=== PATIENT | male | born 1975 | race Caucasian/White ===

== ENCOUNTER 2018-09-21 08:43 | Emergency (ER) | payer BC, OTHER ==
[2018-09-21] MEDS ORDERED: Ibuprofen 800 MG TAB ONE (10:00)
--- NOTE | 2018-09-21 10:53 | CT ---
CT CERVICAL SPINE NONCONTRAST: Date: 09/21/18 Time: 0931 hours HISTORY: 43-year-old male status post acute cervical trauma. FINDINGS: There are no jumped or perched facets. There is no evidence of acute fracture. The vertebral body h eights are maintained. There is no prevertebral soft tissue swelling. There is a 0.5 cm round osteolytic lesion in the right side of the C5 vertebral body. There are no hi gh grade degenerative disc changes or high grade degenerative facet changes. IMPRESSION: 1. No evidence of acute fracture or acute traumatic subluxation. 2. Nonspecific solitary 5 mm osteolytic lesion in the right side of the C5 vertebral body, of unknow n etiology and significance. Consider nuclear medicine whole body bone scan to search for other skele alisa lesions to explore the small possibility of skeletal metastasis. noreen bonds POS: [facility]
== END 2018-09-21 10:13 | disposition home or self-care (01) ==
LOC: ERS 08:43
DX: S09.90XA Unspecified injury of head, initial encounter (principal); S16.1XXA Strain of muscle, fascia and tendon at neck level, initial encounter; E11.9 Type 2 diabetes mellitus without complications; E78.5 Hyperlipidemia, unspecified; I10 Essential (primary) hypertension; F17.210 Nicotine dependence, cigarettes, uncomplicated; Z79.84 Long term (current) use of oral hypoglycemic drugs; Z79.899 Other long term (current) drug therapy; W22.8XXA Striking against or struck by other objects, initial encounter
CPT/HCPCS: 72125

== ENCOUNTER 2018-09-23 12:38 | Emergency (ER) | payer BC, OTHER ==
[2018-09-23] MEDS ORDERED: HYDROmorphone 0.5 MG/0.5 ML SYRINGE ONE (14:10)
[2018-09-23] MEDS ORDERED: Diazepam 5 MG TAB ONE (14:11)
--- NOTE | 2018-09-23 15:45 | RAD ---
THORACIC SPINE 3 VIEWS: HISTORY: Pain. COMPARISON: None. FINDINGS: Thoracic spine vertebral body height is maintained. No fracture. Mild loss of disk space height and osteophyte formation involving the mid to distal thoracic spine. IMPRESSION: Degenerative change of the thoracic spine as above. POS: [facility]
== END 2018-09-23 15:45 | disposition home or self-care (01) ==
LOC: ERS 12:38
DX: S16.1XXA Strain of muscle, fascia and tendon at neck level, initial encounter (principal); S29.012A Strain of muscle and tendon of back wall of thorax, initial encounter; E11.9 Type 2 diabetes mellitus without complications; E78.5 Hyperlipidemia, unspecified; I10 Essential (primary) hypertension; F17.210 Nicotine dependence, cigarettes, uncomplicated; Z79.84 Long term (current) use of oral hypoglycemic drugs; Z79.899 Other long term (current) drug therapy; W22.8XXA Striking against or struck by other objects, initial encounter
CPT/HCPCS: 72072; 96372; J1170

== ENCOUNTER 2020-04-14 06:43 | Outpatient (CLI) | payer OTHER ==
[2020-04-14 16:10] LABS: Hemoglobin 17.7 g/dL (14.0-18.0); Mean Corpuscular HGB CONC 33.6 g/dL (32.0-36.0); Mean Corpuscular Hemoglobin 30.2 pg (27.0-31.0); Mean Corpuscular Volume 90.1 fL (78.0-98.0); Platelet Count 239 thou/uL (130-400); RBC Distribution Width 12.2 % (11.5-14.5); Red Blood Cell (RBC) Count 5.85 mill/uL (4.70-6.10); White Blood Cell (WBC) Count 8.7 thou/uL (4.8-10.8)
[2020-04-14 16:21] LABS: Anion Gap 17 mmol/L (10-20); BUN (Urea Nitrogen) 17 mg/dL (8.9-20.6); Calc. Creatinine Clearance 0 mL/min (70-130); Calcium 10.1 mg/dL (7.8-10.44); Carbon Dioxide 23 mmol/L (22-29); Chloride 100 mmol/L (98-107); Estimated GFR-MDRD 65; Glucose 197 mg/dL (70-105); Sodium 133 mmol/L (136-145)
[2020-04-14 16:28] LABS: Potassium 6.9 mmol/L (3.5-5.1)
== END 2020-04-14 06:44 | disposition home or self-care (01) ==
LOC: LABBT 06:43
PROVIDERS: ATTEND Neurological Surgery
DX: Z01.818 Encounter for other preprocedural examination (principal); Z11.59 Encounter for screening for other viral diseases; M51.24 Other intervertebral disc displacement, thoracic region
CPT/HCPCS: 80048; 85027; 87635; U0003

== ENCOUNTER 2020-04-14 17:50 | Emergency (ER) | payer BC ==
[2020-04-14 18:48] LABS: ALT (SGPT) 17 U/L (8-55); AST (SGOT) 12 U/L (5-34); Albumin 4.6 g/dL (3.5-5.0); Alkaline Phosphatase 64 U/L (40-110); Anion Gap 15 mmol/L (10-20); BUN (Urea Nitrogen) 19 mg/dL (8.9-20.6); Bilirubin, Total 0.3 mg/dL (0.2-1.2); Calc. Creatinine Clearance 0 mL/min (70-130); Calcium 9.8 mg/dL (7.8-10.44); Carbon Dioxide 20 mmol/L (22-29); Chloride 104 mmol/L (98-107); Estimated GFR-MDRD 56; Globulin 3.2 g/dL (2.4-3.5); Glucose 213 mg/dL (70-105); Potassium 5.3 mmol/L (3.5-5.1); Protein, Total 7.8 g/dL (6.0-8.3); Sodium 134 mmol/L (136-145)
== END 2020-04-14 19:40 | disposition home or self-care (01) ==
LOC: ERS 17:50
DX: E87.5 Hyperkalemia (principal); E11.9 Type 2 diabetes mellitus without complications; E78.5 Hyperlipidemia, unspecified; I10 Essential (primary) hypertension; F17.210 Nicotine dependence, cigarettes, uncomplicated; Z79.84 Long term (current) use of oral hypoglycemic drugs
CPT/HCPCS: 36415; 80053; 93005

== ENCOUNTER 2020-04-19 06:58 | Observation (INO) | payer OTHER ==
[2020-04-13 11:46] VITALS: BMI 32.3
[2020-04-19 08:29] LABS: Anion Gap 13 mmol/L (10-20); BUN (Urea Nitrogen) 17 mg/dL (8.9-20.6); Calc. Creatinine Clearance 158 mL/min (70-130); Calcium 9.6 mg/dL (7.8-10.44); Carbon Dioxide 24 mmol/L (22-29); Chloride 102 mmol/L (98-107); Estimated GFR-MDRD Greater than 90; Glucose 241 mg/dL (70-105); Potassium 5.1 mmol/L (3.5-5.1); Sodium 134 mmol/L (136-145)
[2020-04-19] MEDS ORDERED: Fentanyl 100 MCG/2 ML VIAL ONE ×5 (09:57→13:58)
[2020-04-19] MEDS ORDERED: Lidocaine 1% PF 5 ML VIAL ONE (10:45)
[2020-04-19] MEDS ORDERED: Ondansetron PF 4 MG/2 ML Vial ONE (10:45)
[2020-04-19] MEDS ORDERED: Dexamethasone 20 MG/5 ML VIAL ONE (10:45)
[2020-04-19] MEDS ORDERED: Ketorolac Tromethamine 30 MG/ML VIAL ONE (10:45)
[2020-04-19] MEDS ORDERED: PROPOFOL 200 MG/20 ML VIAL ONE (10:45)
[2020-04-19] MEDS ORDERED: Rocuronium Bromide 10 MG/ML (10ML VIAL) ONE (10:45)
[2020-04-19] MEDS ORDERED: HYDROmorphone 2 MG/ML VIAL SLOW IVP PRN (10:58)
[2020-04-19] MEDS ORDERED: Promethazine HCl 25 MG/ML VIAL SLOW IVP PRN (10:58)
[2020-04-19] MEDS ORDERED: Ondansetron HCl/PF 4 MG/2 ML Vial IVP PRN (10:58)
[2020-04-19] MEDS ORDERED: SUGAMMADEX SODIUM 200 MG/2 ML VIAL ONE (11:01)
--- NOTE | 2020-04-19 11:27 | OP ---
DATE OF PROCEDURE: 04/19/2020 [employer] PATROL: Isma. PROCEDURES PERFORMED: T10-T11 laminectomy and left-sided diskectomy. DESCRIPTION OF PROCEDURE: The patient was brought to the operating room and intubated. He was rolled in a prone position on gel-filled chest rolls. An incision was made exposing T10 and T11. Level was confirmed by x-ray by counting up from the sacrum. We performed complete T11 and complete T10 laminectomies completely decompressing the spinal cord. We turned our attention to the left at T10-T11 and found a bulging disk herniation here. We debrided the disk to the best of our ability from this approach and a complete decompression was achieved. The wound was then extensively irrigated. MAC hemostasis was secured. Vancomycin powder was applied, and the wound was closed in anatomic layers over drain. Job ID: [id number]
[2020-04-19] MEDS ORDERED: HYDROmorphone 2 MG/ML VIAL ONE ×2 (12:02→12:55)
[2020-04-19] MEDS ORDERED: Tamsulosin HCl 0.4 MG CAP ONE (13:58)
[2020-04-19] MEDS ORDERED: diphenhydrAMINE 25 MG CAP PO PRN ×2 (14:56→18:23)
[2020-04-19] MEDS ORDERED: Promethazine HCl 12.5 MG SUPP PR PRN (14:56)
[2020-04-19] MEDS ORDERED: Promethazine HCl 25 MG/ML VIAL IM PRN ×2 (14:56→18:23)
[2020-04-19] MEDS ORDERED: diphenhydrAMINE 50 MG/ML VIAL IVP PRN ×2 (14:56→18:23)
[2020-04-19] MEDS ORDERED: Milk Of Magnesia 30 ML UDCUP PO PRN (14:56)
[2020-04-19] MEDS ORDERED: tiZANidine HCl 4 MG TAB PO PRN (14:56)
[2020-04-19] MEDS ORDERED: Mag-Al 1200 mg/1200 mg/30 ML UDCUP PO PRN (14:56)
[2020-04-19] MEDS ORDERED: Acetaminophen/Codeine 30-300mg Tablet PO PRN ×2 (14:56)
[2020-04-19] MEDS ORDERED: Promethazine 25 MG TAB PO PRN (14:56)
[2020-04-19] MEDS ORDERED: traMADol HCl 50 MG TAB PO PRN ×2 (14:56)
[2020-04-19] MEDS ORDERED: Meperidine HCl/PF 25 MG/ML VIAL SLOW IVP PRN (14:56)
[2020-04-19] MEDS ORDERED: Ondansetron PF 4 MG/2 ML Vial IM PRN (14:59)
[2020-04-19] MEDS: tiZANidine HCl 4 MG TAB PO SCH ×2 (15:10→21:19)
[2020-04-19] MEDS: Gemfibrozil 600 MG TAB PO SCH (15:56)
[2020-04-19] MEDS ORDERED: Dextrose 5% in Water 1,000 ML IV PRN (16:05)
[2020-04-19] MEDS ORDERED: Dextrose 50% Abboject 50 ML SYRINGE SLOW IVP PRN (16:05)
[2020-04-19] MEDS ORDERED: Labetalol HCl 100 MG/20 ML VIAL SLOW IVP PRN (16:08)
[2020-04-19] MEDS: glyBURIDE 5 MG TAB PO SCH (16:29)
[2020-04-19] MEDS: Insulin Regular 300 UNITS/3 ML VIAL SC PRN ×2 (16:29→21:23)
[2020-04-19] MEDS ORDERED: Nateglinide 120 MG TAB PO SCH (17:00)
[2020-04-19] MEDS ORDERED: HYDROcodone/Acetaminophen 10/325 mg Tablet PO PRN (17:08)
[2020-04-19] MEDS: CEFAZOLIN 2 GM in Premix Bag 1 BAG IVPB SCH (17:13)
[2020-04-19] MEDS ORDERED: Gabapentin 300 MG CAP PO SCH ×2 (17:15→21:00)
[2020-04-19] MEDS ORDERED: diphenhydrAMINE 50 MG/ML VIAL IM PRN (18:23)
[2020-04-19] MEDS ORDERED: Ondansetron PF 4 MG/2 ML Vial IVP PRN (18:23)
[2020-04-19] MEDS ORDERED: Naloxone HCl 0.4 mg/ml Vial IV PRN (18:23)
[2020-04-19] MEDS ORDERED: Communication Order-Pharmacy FS SCH (18:30)
[2020-04-19] MEDS: fentaNYL Citrate/PF 2,000 MCG in Sodium Chloride 0.9% 60 ML IV PRN (18:39)
--- NOTE | 2020-04-19 20:30 | PDOC.HOSPP ---
- Subjective Encounter Date: 04/19/20 Encounter Time: 19:00 Subjective: Patient seen and examined for med mngt. Pain controlled on RESIDENTIAL CONCIERGE. No CP/SOB/ Palpitations. No new complaints. - Objective Vital Signs & Weight: Vital Signs (12 hours) Temp Pulse Resp BP Pulse Ox 04/19/20 14:25 98.5 F 76 20 149/77 H 97 Weight Weight 219 lb I&O: 04/18/20 04/19/20 04/20/20 06:59 06:59 06:59 Output Total 50 Balance -50 Result Diagrams: 04/19/20 07:51 Additional Labs: Accuchecks 04/19/20 15:26 POC Glucose 251 H Laboratory Tests 04/19/20 04/19/20 07:51 15:26 Sodium 134 L POC Glucose 251 H EKG Reviewed by me: Yes (SR) Hospitalist ROS - Review of Systems Respiratory: denies: cough, dry, shortness of breath, hemoptysis, SOB with excertion, pleuritic pain, sputum, wheezing, other Cardiovascular: denies: chest pain, palpitations, orthopnea, paroxysmal noc. dyspnea, edema, light headedness, other - Medication Medications: Active Medications Generic Name Dose Route Start Last Admin Trade Name Freq PRN Reason Stop Dose Admin Gemfibrozil 600 mg 04/19/20 16:30 04/19/20 15:56 Lopid PO 600 mg BID-AC FRANCIA Administration Glyburide 10 mg 04/19/20 16:30 04/19/20 16:29 Diabeta PO 10 mg 0730,1630 FRANCIA Administration Cefazolin Sodium/Dextrose 2 gm 50 mls @ 100 mls/hr 04/19/20 18:00 04/19/20 17 :13 / Device IVPB 50 mls 0200,1000,1800 FRANCIA Administration Fentanyl Citrate 2,000 mcg/ 100 mls @ 0 mls/hr 04/19/20 18:23 04/19/20 18:39 Sodium Chloride IV 100 mls INF PRN Administration Pain As Directed Insulin Human Regular 0 units 04/19/20 16:05 04/19/20 16:29 Humulin R SC 6 unit .MODERATE SLIDING SC PRN Administration Moderate Correctional Scale Tizanidine HCl 4 mg 04/19/20 15:00 04/19/20 15:10 Zanaflex PO 4 mg TID FRANCIA Administration - Exam General Appearance: NAD Neck: supple, no JVD Heart: RRR, no gallops Respiratory: no wheezes, no rales Gastrointestinal: non-tender, non-distended, normal bowel sounds Extremities: no cyanosis, no clubbing Neurological: no new deficit Hosp A/P - Plan DVT proph w/SCDs DM2 - uncontrolled - prob due to steroids HTN HLD Obesity BMI 32.3 Hyponatremia - mild PLAN: DC Lisinopril - Pt had dced prior to admission Cont Metoprolol - increase dose Cont Glyburide Add Lantus Cont moderate sliding scale Cont Cont PT/OT IS DVT prophylaxis
[2020-04-19] MEDS ORDERED: Simvastatin 20 MG TAB PO SCH (21:00)
[2020-04-19] MEDS: Sodium Chloride 0.9% 1,000 ML IV SCH (21:17)
[2020-04-19] MEDS: Atorvastatin Calcium 10 MG TAB PO SCH (21:20)
[2020-04-19] MEDS: Lisinopril 10 MG TAB PO SCH (21:20)
[2020-04-20] MEDS ORDERED: Ketorolac Tromethamine 30 MG/ML VIAL IVP SCH (00:15)
[2020-04-20] MEDS: CEFAZOLIN 2 GM in Premix Bag 1 BAG IVPB SCH ×3 (02:12→17:37)
[2020-04-20] MEDS: Insulin Regular 300 UNITS/3 ML VIAL SC PRN ×5 (02:12→20:42)
[2020-04-20] MEDS: fentaNYL Citrate/PF 2,000 MCG in Sodium Chloride 0.9% 60 ML IV PRN (04:17)
[2020-04-20] MEDS: Sodium Chloride 0.9% 1,000 ML IV SCH ×2 (06:12→16:37)
[2020-04-20] MEDS: Tamsulosin HCl 0.4 MG CAP PO SCH (06:12)
[2020-04-20] MEDS: Gemfibrozil 600 MG TAB PO SCH ×2 (06:13→16:32)
[2020-04-20] MEDS: glyBURIDE 5 MG TAB PO SCH ×2 (06:13→16:54)
--- NOTE | 2020-04-20 07:02 | PRG ---
DATE OF SERVICE: 04/20/2020 SUBJECTIVE: The patient is a 44-year-old male who underwent T10-T11 laminectomy and a left-sided diskectomy on 04/19/2020. Following the surgery, he was transitioned to the Med/Surg floor. The patient has had significant issues with pain control overnight. He is complaining of sharp stabbing pain to the left buttocks, hip, and groin. This required DIRECTOR OF EVENT MANAGEMENT for control of his pain. OBJECTIVE: On exam this morning, the patient appears to be awake, alert, in no acute distress. He has free active range of motion of all extremities. No focal motor weakness. His incision is clean, dry, and intact. There is minimal output, only 50 mL out from his drain last night. PLAN: We will go ahead and remove his ROXANE drain. He appears to be mobilizing well, although is still needing the DIRECTOR OF EVENT MANAGEMENT. We will work on transitioning off the DIRECTOR OF EVENT MANAGEMENT and have him work with Physical Therapy today. If improving, I anticipate he could be discharged home in the next few days. I will go ahead and start Lyrica 75 b.i.d and give him a dose of decadron. Job ID: [id number] [facility]
[2020-04-20] MEDS ORDERED: Lisinopril 10 MG TAB PO SCH (09:00)
[2020-04-20] MEDS ORDERED: Dexamethasone 10 MG/ML VIAL SLOW IVP SCH (09:30)
[2020-04-20] MEDS: Pregabalin 75 MG CAP PO SCH ×2 (09:50→20:40)
[2020-04-20] MEDS: tiZANidine HCl 4 MG TAB PO SCH ×3 (09:50→20:39)
[2020-04-20] MEDS: Lisinopril 10 MG TAB PO SCH (09:51)
[2020-04-20] MEDS ORDERED: Insulin Glargine 20 UNITS in Pre-Filled Syringe 1 EACH SC SCH (10:00)
[2020-04-20] MEDS ORDERED: HYDROcodone/Acetaminophen 10/325 mg Tablet PO PRN (12:50)
--- NOTE | 2020-04-20 15:31 | PRG ---
DATE OF SERVICE: 04/20/2020 Mr. Quezada is doing reasonably well, quite ambulatory and has been in and out of the hospital. He is complaining of some left hip, buttock, and testicular region pain and I suspect there is a transient spinal cord phenomenon. We have given him one dose of Decadron and he is on fentanyl and doing much better. I anticipate we will be able to stop the GROCERY CASHIER tomorrow and he can be discharged shortly thereafter. Job ID: [id number]
[2020-04-20] MEDS ORDERED: Polyethylene Glycol 3350 17 GM Packet PO PRN (16:03)
[2020-04-20] MEDS: metFORMIN 500 MG TAB PO SCH (16:32)
[2020-04-20] MEDS: HYDROcodone/Acetaminophen 10/325 mg Tablet PO PRN ×2 (16:32→20:41)
[2020-04-20] MEDS: Fentanyl 100 MCG/2 ML VIAL SLOW IVP PRN ×2 (17:39→19:41)
[2020-04-20] MEDS: Atorvastatin Calcium 10 MG TAB PO SCH (20:39)
[2020-04-20] MEDS ORDERED: Insulin Glargine 15 UNITS in Pre-Filled Syringe 1 EACH SC SCH (21:00)
[2020-04-21] MEDS: HYDROcodone/Acetaminophen 10/325 mg Tablet PO PRN ×3 (00:34→09:25)
[2020-04-21] MEDS: Fentanyl 100 MCG/2 ML VIAL SLOW IVP PRN ×5 (00:55→12:19)
[2020-04-21] MEDS: Insulin Regular 300 UNITS/3 ML VIAL SC PRN (02:36)
[2020-04-21] MEDS: Tamsulosin HCl 0.4 MG CAP PO SCH (04:58)
[2020-04-21] MEDS: Sodium Chloride 0.9% 1,000 ML IV SCH (06:29)
[2020-04-21] MEDS: Gemfibrozil 600 MG TAB PO SCH (06:55)
[2020-04-21] MEDS: glyBURIDE 5 MG TAB PO SCH (06:55)
[2020-04-21] MEDS ORDERED: Insulin Glargine 20 UNITS in Pre-Filled Syringe 1 EACH SC SCH (09:00)
[2020-04-21] MEDS: Pregabalin 75 MG CAP PO SCH (09:23)
[2020-04-21] MEDS: tiZANidine HCl 4 MG TAB PO SCH (09:23)
[2020-04-21] MEDS: metFORMIN 500 MG TAB PO SCH (09:24)
[2020-04-21 10:59] VITALS: BP 125/72; TEMP 98.6
--- NOTE | 2020-04-22 02:38 | DIS ---
DATE OF ADMISSION: 04/19/2020 DATE OF DISCHARGE: 04/21/2020 HOSPITAL COURSE: The patient is a 44-year-old male recently evaluated in our office for progressive back and claudicatory leg pain after a job injury at work. He was found to have T10-T11 disk herniation. He underwent T10-T11 laminectomy and diskectomy on 04/19/2020. Following the surgery, he was transitioned to the med/surg floor. He initially had significant pain control issues over the first night with some left hip and groin pain. This improved with Decadron treatment and a MANAGER FRONT. He was transitioned off the MANAGER FRONT over the following day and was ambulating on the floor without any difficulty. I also started Lyrica 75 mg b.i.d. He had no trouble with urination, who was tolerating a regular diet. His ROXANE output had minimal output over the first night, was removed on postoperative day #1. I did attempt to visit the patient on postoperative day 2 prior to discharge several times. However, every time he was down either smoking or going on a walk. The patient discharged to home. I discussed home care precautions provided with scripts for [place] and Zanaflex. TMP AWARxE was checked prior to discharge. Job ID: [id number]
== END 2020-04-21 12:34 | disposition home or self-care (01) ==
LOC: SDC 06:58 → SURG A 12:10
PROVIDERS: ADMIT Neurological Surgery; ATTEND Neurological Surgery
PROC: 0RB90ZZ Excision of Thoracic Vertebral Disc, Open Approach (ICD-10-PCS; principal; 2020-04-19)
PROC: 00NX0ZZ Release Thoracic Spinal Cord, Open Approach (ICD-10-PCS; 2020-04-19)
DX: S23.1 Subluxation and dislocation of thoracic vertebra (principal); I10 Essential (primary) hypertension; E78.5 Hyperlipidemia, unspecified; E11.9 Type 2 diabetes mellitus without complications; E87.1 Hypo-osmolality and hyponatremia; E66.9 Obesity, unspecified; Z68.32 Body mass index [BMI] 32.0-32.9, adult; Z79.84 Long term (current) use of oral hypoglycemic drugs; Z79.899 Other long term (current) drug therapy; Z88.5 Allergy status to narcotic agent; Z88.8 Allergy status to other drugs, medicaments and biological substances; X58.XXXA Exposure to other specified factors, initial encounter; Y99.0 Civilian activity done for income or pay
CPT/HCPCS: 36415; 36416; 76000; 80048; 96365; 96366; 96375; 96376; G0378; J0690; J1100; J1170; J1815; J1885; J2001; J2175; J2405; J2704; J3010; J3370; J3490

== ENCOUNTER 2020-04-27 07:16 | Emergency (ER) | payer BC ==
[2020-04-27] MEDS ORDERED: Ketorolac Tromethamine 30 MG/ML VIAL ONE (07:41)
== END 2020-04-27 08:45 | disposition home or self-care (01) ==
LOC: ERS 07:16
DX: G89.18 Other acute postprocedural pain (principal); M54.6 Pain in thoracic spine; E11.9 Type 2 diabetes mellitus without complications; E78.5 Hyperlipidemia, unspecified; I10 Essential (primary) hypertension; F17.210 Nicotine dependence, cigarettes, uncomplicated; Z79.899 Other long term (current) drug therapy; Z79.84 Long term (current) use of oral hypoglycemic drugs
CPT/HCPCS: 96374; J1885

== ENCOUNTER 2020-05-05 11:10 | Outpatient (CLI) | payer BC, OTHER ==
--- NOTE | 2020-05-05 13:35 | RAD ---
THORACIC SPINE 2 VIEWS: INDICATION: Followup back surgery. COMPARISON: Prior exam dated 09/23/2018. FINDINGS: There are overlying skin brigid seen overlying the lower thoracolumbar spine. There is multilevel d egenerative change involving the thoracic spine which appear similar-appearing. Spinal alignment is within normal limits. Visualized lungs are clear. IMPRESSION: 1. Stable spondylosis of the thoracic spine. 2. Skin brigid overlying the thoracolumbar region. POS: [facility]
== END 2020-05-05 11:11 | disposition home or self-care (01) ==
LOC: TBSIIMAG 11:10
PROVIDERS: ATTEND Neurological Surgery
DX: M51.24 Other intervertebral disc displacement, thoracic region (principal); M47.814 Spondylosis without myelopathy or radiculopathy, thoracic region
CPT/HCPCS: 72070